=== PATIENT | female | born 1985 | race Caucasian/White ===

== ENCOUNTER 2023-08-01 20:02 | Emergency (ER) | payer OTHER ==
[2023-08-01 20:51] LABS: Specific Gravity 1.015 (1.005-1.030)
[2023-08-01] MEDS ORDERED: NA CHLORIDE 0.9% 1,000 ML ONE (20:55)
[2023-08-01] MEDS ORDERED: ONDANSETRON 4 MG/2 ML VIAL ONE (20:55)
[2023-08-01 20:56] LABS: Sqamous Epithelial <5 /HPF (None Seen); Urine Bacteria <20 /HPF (<20); Urine Culture Reflex Order NOT NEEDED; Urine Micro Reflex YN NO BILL MICROSCOPIC; Urine Mucus 2+ /HPF (None Seen); Urine RBC <5 /HPF (None Seen); Urine WBC <5 /HPF (<5)
[2023-08-01 20:58] LABS: Barbiturates NEGATIVE (NEGATIVE); Benzodiazepines POSITIVE (NEGATIVE); Cocaine NEGATIVE (NEGATIVE); METHAMPHETAM POSITIVE (NEGATIVE); Methadone NEGATIVE (NEGATIVE); Opiates NEGATIVE (NEGATIVE); Phencyclidine NEGATIVE (NEGATIVE); THC Cannibis POSITIVE (NEGATIVE)
[2023-08-01 21:14] LABS: Absolute Basophils 0.1 K/uL (0-0.5); Absolute Eosinophils 0.1 K/uL (0-0.5); Absolute Lymphocytes (CBC) 1.4 K/uL (0.7-4.9); Absolute Monocytes 0.6 K/uL (0.1-1.3); Absolute Neutrophil 4.1 K/uL (1.8-8.0); Eosinophils % 1.8 % (0-4.4); Hematocrit 34.7 % (36.0-45.0); Hemoglobin 11.9 g/dL (12.0-15.0); Lymphocytes % 22.5 % (15.3-44.8); MCH 29.6 pg (27.0-35.0); MCHC 34.1 g/dL (32.0-36.0); MCV 86.8 fL (80-100); MPV 8.9 fL (7.6-11.3); Monocytes % 9.1 % (3.3-12.3); Neutrophils % 65.6 % (41.7-73.7); Platelets 181 thou/uL (152-406); Red Cell Distribution Width 12.9 % (12.1-15.2)
[2023-08-01 21:35] LABS: Anion Gap 7.5 mEq/L (5.0-15.0); Magnesium 1.7 mg/dL (1.6-2.4); PT Prothrombin Time 11.1 SECONDS (9.5-12.5); Potassium 3.5 mEq/L (3.5-5.1); Protime INR 1.01; Troponin High Sensitivity 4.1 pg/mL (<58.9)
--- NOTE | 2023-08-01 22:45 | RAD REPORT ---
EXAM DESCRIPTION: US - Transvaginal OB - 08/01/2023 10:25 pm CLINICAL HISTORY: ABD CRAMPING, COMPARISON: No comparisons TECHNIQUE: Sonographic grayscale and color flow images of a first-trimester were obtained through transvaginal approach. FINDINGS: A single live intrauterine is identified. [place]-rump length measures 15 millimeters, corresponding to gestational age of 7 weeks, 6 days. heart rate: 165 BPM. Normal yolk sac is visualized. Maternal ovaries are unremarkable. No free fluid. IMPRESSION: 1. Single live intrauterine . 2. Calculated gestational age: 7 weeks, 6 days. Estimated due date by ultrasound: 03/13/2024.
--- NOTE | 2023-08-02 00:16 | ER ---
Nurse's Notes [facility] Name: Emily Hawkins Age: 37 yrs Sex: Female : 1985 Arrival Date: 08/01/2023 Time: 20:02 Bed 19 Private MD: Diagnosis: related conditions, unspecified, first trimester;Nausea;Other fatigue Presentation: 07/31 20:31 Chief complaint: Patient states: possible miscarriage jun 05. heavy bleeding 1 week. lg3 started feeling sick 2 weeks ago. now "feels " with positive test 1wk ago. Coronavirus screen: Client denies travel out of the [place] in the last 14 days. At this time, the client does not indicate any symptoms associated with coronavirus-19. Ebola Screen: No symptoms or risks identified at this time. Initial Sepsis Screen: Does the patient meet any 2 criteria? No. Patient's initial sepsis screen is negative. Does the patient have a suspected source of infection? No. Patient's initial sepsis screen is negative. Risk Assessment: Do you want to hurt yourself or someone else? Patient reports no desire to harm self or others. Onset of symptoms is unknown. 20:31 Method Of Arrival: Ambulatory lg3 20:31 Acuity: NIR 3 lg3 Triage Assessment: 20:36 General: Appears in no apparent distress. comfortable, Behavior is cooperative, lg3 anxious. Pain: Denies pain. EENT: No deficits noted. No signs and/or symptoms were reported regarding the EENT system. Neuro: No deficits noted. Wiley Agitation-Sedation Scale (RASS): 0 - Alert and Calm Level of Consciousness is awake, alert, obeys commands, Oriented to person, place, time, situation. Cardiovascular: No deficits noted. Denies chest pain, shortness of breath, Capillary refill < 3 seconds Clubbing of nail beds is absent JVD is absent Patient's skin is warm and dry. Respiratory: No deficits noted. Airway is patent Respiratory effort is even, unlabored, Respiratory pattern is regular, symmetrical. GI: No deficits noted. Abdomen is round non-distended, Bowel sounds present X 4 quads. Reports constipation. : No deficits noted. No signs and/or symptoms were reported regarding the genitourinary system. Derm: No deficits noted. No signs and/or symptoms reported regarding the dermatologic system. Skin is intact, Skin is dry, Skin is normal, Skin temperature is warm. Musculoskeletal: No deficits noted. No signs and/or symptoms reported regarding the musculoskeletal system. Circulation, motion, and sensation intact. Range of motion: intact in all extremities. 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 - Infectious Disease History:: Denies. - Social history:: Smoking status: Patient reports the use of cigarette tobacco products, smokes one pack cigarettes per day. Patient uses street drugs, Methamphetamine (Meth). Screenin:40 [facility] ED Fall Risk Assessment (Adult) History of falling in the last 3 months, lg3 including since admission No falls in past 3 months (0 pts). [facility] ED Fall Risk Assessment (Adult) Confusion or Disorientation No (0 pts) Intoxicated or Sedated No (0 pts) Impaired Gait No (0 pts) Mobility Assist Device Used No (0 pt) Altered Elimination No (0 pt) Score/Fall Risk Level 0 - 2 = Low Risk Oriented to surroundings, Maintained a safe environment, Educated pt \\T\\ family on fall prevention, incl call for assistance when getting out of bed, Assessed \\T\\ reinforced patient's understanding of fall precautions. Abuse screen: Denies threats or abuse. Denies injuries from another. Nutritional screening: No deficits noted. Tuberculosis screening: No symptoms or risk factors identified. Assessment: 20:40 General: see triage assessment. GI: No deficits noted. Abdomen is round non-distended. lg3 20:41 General: Appears uncomfortable, well developed, well nourished, Behavior is me1 cooperative, appropriate for age, restless, Reports fatigue for 2-3 days, lethargic, fever and chills last night. Concerned that she may have retained some of her miscarriage from May and its making her sick. Pain: Denies pain. Neuro: Level of Consciousness is awake, alert, obeys commands, Oriented to person, place, time, situation, Appropriate for age. Cardiovascular: Patient's skin is warm and dry. Respiratory: Airway is patent Respiratory effort is even, unlabored, Respiratory pattern is regular, symmetrical. GI: Abdomen is round. : No signs and/or symptoms were reported regarding the genitourinary system. EENT: No signs and/or symptoms were reported regarding the EENT system. Derm: Skin is intact, is healthy with good turgor, Skin is pink, warm \\T\\ dry. Musculoskeletal: No signs and/or symptoms reported regarding the musculoskeletal system. 08/01 00:21 General: Appears in no apparent distress. comfortable, Behavior is calm, cooperative. lg3 Pain: Denies pain. Neuro: No deficits noted. Wiley Agitation-Sedation Scale (RASS): 0 - Alert and Calm Level of Consciousness is awake, alert, obeys commands, Oriented to person, place, time, situation. Cardiovascular: No deficits noted. Denies chest pain, shortness of breath, Capillary refill < 3 seconds Clubbing of nail beds is absent JVD is absent Patient's skin is warm and dry. Respiratory: No deficits noted. Airway is patent Respiratory effort is even, unlabored, Respiratory pattern is regular, symmetrical. GI: No deficits noted. Abdomen is round non-distended, Bowel sounds present X 4 quads. : No deficits noted. No signs and/or symptoms were reported regarding the genitourinary system. EENT: No deficits noted. No signs and/or symptoms were reported regarding the EENT system. Derm: No deficits noted. No signs and/or symptoms reported regarding the dermatologic system. Skin is intact, is healthy with good turgor, Skin is dry, Skin is normal, Skin temperature is warm. Musculoskeletal: No deficits noted. No signs and/or symptoms reported regarding the musculoskeletal system. Circulation, motion, and sensation intact. Range of motion: intact in all extremities. Vital Signs: 07/31 20:31 BP 156 / 7; Pulse 94; Resp 17 S; Temp 97.6(TE); Pulse Ox 100% on R/A; Weight 74.84 kg lg3 (R); Height 5 ft. 7 in. (R); 20:45 BP 112 / 62; Pulse 80; Resp 16; Pulse Ox 100% on R/A; me1 21:44 BP 111 / 68; Pulse 78; Resp 18; Pulse Ox 100% on R/A; rv1 22:45 BP 105 / 62; Pulse 73; Resp 18; Pulse Ox 100% on R/A; me1 23:45 BP 103 / 57; Pulse 83; Resp 17 S; Temp 97.4; Pulse Ox 96% on R/A; lg3 20:31 Body Mass Index 25.84 (74.84 kg, 170.18 cm) lg3 ED Course: 20:07 Patient arrived in ED. ra3 20:10 Ramez Vera PA is PHCP. cp 20:10 Ramez Connolly MD is Attending Physician. cp 20:27 Leida Leonard RN is Primary Nurse. me1 20:33 Triage completed. lg3 20:36 Urine Drug Screen Sent. me1 20:36 Test, Urine Sent. me1 20:36 Urine Microscopic Only Sent. me1 20:36 Urine collected: clean catch specimen, cloudy. me1 20:36 Arm band placed on right wrist. lg3 20:40 Patient has correct armband on for positive identification. Placed in gown. Bed in low lg3 position. Call light in reach. Side rails up X 1. Client placed on continuous cardiac and pulse oximetry monitoring. NIBP monitoring applied. Door closed. Noise minimized. Warm blanket given. Pillow given. Family accompanied patient. 20:41 No provider procedures requiring assistance completed. me1 20:41 Provided Education on: POC. Verbalized understanding. . me1 20:53 Quantitative Hcg Sent. me1 20:53 Basic Metabolic Panel Sent. me1 20:53 CBC with Diff Sent. me1 20:53 Magnesium Sent. me1 20:53 PT-INR Sent. me1 20:53 Troponin HS Sent. me1 20:54 Inserted saline lock: 20 gauge in left antecubital area, using aseptic technique. me1 22:27 US Transvaginal Ob In Process Unspecified. EDMS 23:01 Rh Type Sent. me1 23:45 IV discontinued, intact, bleeding controlled, No redness/swelling at site. Pressure lg3 dressing applied. Administered Medications: 20:59 Drug: NS 0.9% IV 1000 ml IV at 1 bolus Per protocol; 1000 mL bolus Route: IV; Rate: 1 me1 bolus; Site: left antecubital; 23:36 Follow up: Response: No adverse reaction; IV Status: Completed infusion; IV Intake: me1 1000ml 20:59 Drug: Ondansetron IVP 4 mg IVP once; over 2 minutes Route: IVP; Site: left antecubital; me1 22:59 Follow up: Response: No adverse reaction; Nausea is decreased me1 Medication: 20:41 VIS not applicable for this client. me1 Intake: 23:36 IV: 1000ml; Total: 1000ml. me1 Outcome: 23:45 Discharged to home ambulatory, with significant other, lg3 23:45 Condition: stable 23:45 Discharge instructions given to patient, Instructed on discharge instructions, follow up and referral plans. medication usage, Demonstrated understanding of instructions, follow-up care, medications, Prescriptions given X 2, 08/01 00:16 Discharge ordered by . riki 00:24 Patient left the ED. lg3 Signatures: Dispatcher [employer] EDMS Ramez Vera PA PA cp Able, Lacie, RN RN lg3 Angelita Sheehan rv1 Leida Leonard RN RN me1 Laxmi Mo ra3 Corrections: (The following items were deleted from the chart) 00:23 07/31 23:45 BP 103 / 57; Pulse 83bpm; Resp 17bpm; Spontaneous; Pulse Ox 96% RA; rv1 lg3
--- NOTE | 2023-08-02 00:16 | EDPHYS ---
Physician Documentation [facility] Name: Emily Hawkins Age: 37 yrs Sex: Female : 1985 Arrival Date: 08/01/2023 Time: 20:02 Bed 19 Private MD: ED Physician Ramez Connolly HPI: 07/31 20:30 This 37 yrs old Female presents to ER via Ambulatory with complaints of Nausea - cp fatigue,weakness, LMP:APR psbl preg. 20:30 The patient presents to the emergency department with possible . cp 20:30 Patient reports positive home test approximately 1 week ago with possible cp miscarriage in May after positive and episode of heavy vaginal bleeding with what appeared to be passage of products. 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 - Infectious Disease History:: Denies. - Social history:: Smoking status: Patient reports the use of cigarette tobacco products, smokes one pack cigarettes per day. Patient uses street drugs, Methamphetamine (Meth). ROS: 20:33 Abdomen/GI: Positive for nausea, Negative for abdominal pain, vomiting, diarrhea, cp 20:33 Constitutional: Positive for fatigue, Negative for body aches, chills, fever, poor PO cp intake, 20:33 Cardiovascular: Negative for chest pain, palpitations, 20:33 Respiratory: Negative for cough, shortness of breath, wheezing, 20:33 : Negative for urinary symptoms, flank pain, vaginal bleeding, vaginal discharge, 20:33 Neuro: Positive for weakness, 20:33 All other systems are negative, Exam: 20:35 Constitutional: The patient appears in no acute distress, alert, awake, cp non-diaphoretic, non-toxic, well developed, well nourished, anxious, 20:35 Head/Face: Normocephalic, atraumatic. cp 20:35 Eyes: Periorbital structures: appear normal, Conjunctiva: normal, no exudate, no injection, Sclera: no appreciated abnormality, Lids and lashes: appear normal, bilaterally, 20:35 ENT: External ear(s): are unremarkable, Nose: is normal, Mouth: Lips: moist, Oral mucosa: pink and intact, moist, Posterior pharynx: is normal, airway is patent, no erythema, no exudate, 20:35 Chest/axilla: Inspection: normal, 20:35 Cardiovascular: Rate: normal, Rhythm: regular, 20:35 Respiratory: the patient does not display signs of respiratory distress, Respirations: normal, no use of accessory muscles, no retractions, labored breathing, is not present, Breath sounds: are clear throughout, no decreased breath sounds, no stridor, no wheezing, 20:35 Abdomen/GI: Inspection: abdomen appears normal, Palpation: abdomen is soft and non-tender, in all quadrants, 20:35 Back: pain, is absent, ROM is normal, 20:35 Neuro: Orientation: to person, place \T\ time. Mentation: is normal, Motor: moves all fours, strength is normal, Sensation: is normal, Gait: is steady, 20:45 ECG was reviewed by the Attending Physician. cp Vital Signs: 20:31 BP 156 / 7; Pulse 94; Resp 17 S; Temp 97.6(TE); Pulse Ox 100% on R/A; Weight 74.84 kg lg3 (R); Height 5 ft. 7 in. (R); 20:45 BP 112 / 62; Pulse 80; Resp 16; Pulse Ox 100% on R/A; me1 21:44 BP 111 / 68; Pulse 78; Resp 18; Pulse Ox 100% on R/A; rv1 22:45 BP 105 / 62; Pulse 73; Resp 18; Pulse Ox 100% on R/A; me1 23:45 BP 103 / 57; Pulse 83; Resp 17 S; Temp 97.4; Pulse Ox 96% on R/A; lg3 20:31 Body Mass Index 25.84 (74.84 kg, 170.18 cm) lg3 MDM: 20:17 Patient medically screened. 08/01 00:15 Data reviewed: vital signs, nurses notes, lab test result(s), EKG, radiologic studies, cp ultrasound. 00:15 Differential diagnosis: ectopic , anemia, cardiac arrhythmia, electrolyte cp abnormality. I considered the following discharge prescriptions or medication management in the emergency department Medications were administered in the Emergency Department. See MAR. Independent interpretation of the following test(s) in the Emergency Department EKG: See my EKG interpretation above. Counseling: I had a detailed discussion with the patient and/or guardian regarding the historical points, exam findings, and any diagnostic results supporting the discharge/admit diagnosis, lab results, radiology results, the need for outpatient follow up, an OB/Gyne specialist, to return to the emergency department if symptoms worsen or persist or if there are any questions or concerns that arise at home. 07/31 20:29 Order name: Urine Microscopic Only; Complete Time: 21:27 07/31 20:29 Order name: Urine Drug Screen; Complete Time: 21:27 07/31 21:27 Interpretation: Normal except: BZO POSITIVE; METHAMPHETAMINE POSITIVE; THC POSITIVE. 07/31 20:29 Order name: Test, Urine; Complete Time: 21:27 07/31 21:27 Interpretation: Abnormal: URINE PREG POS. cp 07/31 20:43 Order name: Basic Metabolic Panel; Complete Time: 21:52 cp 07/31 20:43 Order name: CBC with Diff; Complete Time: 21:52 07/31 21:52 Interpretation: Normal except: HGB 11.9; HCT 34.7. cp 07/31 20:43 Order name: Magnesium; Complete Time: 21:52 cp 07/31 20:43 Order name: PT-INR; Complete Time: 21:52 cp 07/31 20:43 Order name: Troponin HS; Complete Time: 21:52 cp 07/31 20:43 Order name: Quantitative Hcg; Complete Time: 21:52 cp 07/31 21:52 Interpretation: Abnormal: HCGQ [id number]. cp 07/31 21:33 Order name: Rh Type cp 07/31 23:56 Order name: ABO/RH typing PN; Complete Time: 00:08 EDMS 08/01 00:08 Interpretation: Reviewed. 07/31 21:53 Order name: US Transvaginal Ob; Complete Time: 22:52 cp 07/31 22:53 Interpretation: Report reviewed. cp 07/31 20:29 Order name: EKG; Complete Time: 20:30 cp 07/31 20:29 Order name: EKG - Nurse/Tech; Complete Time: 20:39 cp 07/31 20:43 Order name: Cardiac monitoring; Complete Time: 20:53 cp 07/31 20:43 Order name: Labs collected and sent; Complete Time: 20:53 cp 07/31 20:43 Order name: O2 Per Protocol; Complete Time: 20:45 cp 07/31 20:43 Order name: O2 Sat Monitoring; Complete Time: 20:45 cp EC/25 20:45 Rate is 83 beats/min. Rhythm is regular. OH interval is normal. QRS interval is normal. cp QT interval is normal. T waves are Inverted in lead aVR. Interpreted by me. Reviewed by me. Administered Medications: 20:59 Drug: NS 0.9% IV 1000 ml IV at 1 bolus Per protocol; 1000 mL bolus Route: IV; Rate: 1 me1 bolus; Site: left antecubital; 23:36 Follow up: Response: No adverse reaction; IV Status: Completed infusion; IV Intake: me1 1000ml 20:59 Drug: Ondansetron IVP 4 mg IVP once; over 2 minutes Route: IVP; Site: left antecubital; me1 22:59 Follow up: Response: No adverse reaction; Nausea is decreased me1 Disposition Summary: 08/02/23 00:16 Discharge Ordered Notes: Location: Home cp Problem: new cp Symptoms: have improved cp Condition: Stable cp Diagnosis - related conditions, unspecified, first trimester cp - Nausea cp - Other fatigue cp Followup: cp - With: Private Physician - When: 2 - 3 days - Reason: Recheck today's complaints Discharge Instructions: - Discharge Summary Sheet cp - Nausea, Adult cp - Care cp - Fatigue cp - First Trimester of cp Forms: - Medication Reconciliation Form cp - Antibiotic Education cp - Prescription Opioid Use cp - Patient Portal Instructions cp - Leadership Thank You Letter cp Prescriptions: - 114-iron a-g-folate 1 20 mg iron- 1 mg Oral tablet - take 1 tablet ORAL route every day at bedtime; 60 tablet; Refills: 0, Product cp Selection Permitted - promethazine 25 mg Oral Tablet - take 1 tablet ORAL route every 6 hours As needed; 20 tablet; Refills: 0, cp Product Selection Permitted Addendum: 08/06/2023 22:17 Co-signature as Attending Physician, Ramez Connolly MD I agree with the assessment and c morales plan of care. Signatures: Dispatcher [employer] Ramez Mathias MD MD cha Page, Corey, PA Valerie Pedraza cp RN RN lg3 Leida Leonard RN RN me1 Corrections: (The following items were deleted from the chart) 08/01 14:21 14:20 Abdomen/GI: Negative for cp cp
[2023-08-02 01:05] VITALS: BP 103/57; TEMP 97.4; O2SAT 96
--- NOTE | 2023-08-05 13:08 | EKG ---
Test Date: 2023-08-01 Test Time: 20:39:21 [employer]: RV MEASUREMENT RESULTS: Intervals: Rate: 83 AK: 130 QRSD: 92 QT: 370 QTc: 434 [place]: P: 22 AK: 130 QRS: 57 T: 52 INTERPRETIVE STATEMENTS: Normal sinus rhythm Incomplete right bundle branch block Borderline ECG No previous ECG available for comparison Electronically Signed On 08-05-23 12:58:46 CDT by Rex Nieves
== END 2023-08-02 00:24 | disposition home or self-care (01) ==
LOC: ER 20:02
DX: O26.891 Other specified pregnancy related conditions, first trimester (principal); O99.281 Endocrine, nutritional and metabolic diseases complicating pregnancy, first trimester; O99.341 Other mental disorders complicating pregnancy, first trimester; F32.A Depression, unspecified; F41.8 Other specified anxiety disorders; O99.331 Smoking (tobacco) complicating pregnancy, first trimester; F17.210 Nicotine dependence, cigarettes, uncomplicated; Z3A.01 Less than 8 weeks gestation of pregnancy; Z88.8 Allergy status to other drugs, medicaments and biological substances
CPT/HCPCS: 93005; 85025; 80048; 36415; 86900; 83735; 81025; 85610; 86901; 84702; 81015; 84484; 80307; 76817; J2405; J7030